=== PATIENT | male | born 1965 | race African-American/Black ===

== ENCOUNTER 2018-03-15 09:46 | Outpatient (RCR) | payer OTHER | END 2018-03-16 | LOC: EDBD → PT 09:46 | PROVIDERS: ATTEND Specialist | DX: M16.12 Unilateral primary osteoarthritis, left hip (principal); M70.72 Other bursitis of hip, left hip; M25.552 Pain in left hip; M25.652 Stiffness of left hip, not elsewhere classified; M62.81 Muscle weakness (generalized) ==

== ENCOUNTER 2018-03-24 09:49 | Outpatient (RCR) | payer OTHER | END 2018-04-16 | LOC: PT 09:49 | PROVIDERS: ATTEND Specialist | DX: M16.12 Unilateral primary osteoarthritis, left hip (principal); M70.72 Other bursitis of hip, left hip ==

== ENCOUNTER → 2019-03-15 | Outpatient (CLI) | payer OTHER ==
--- NOTE | 2019-03-15 16:01 | Diagnostic Imaging Report ---
EXAM: Renal Ultrasound INDICATION: ^CHRONIC KIDNEY DISEASE STAGE III COMPARISON: None TECHNIQUE: Transverse and longitudinal images of the kidneys and bladder were obtained. FINDINGS: Right Kidney: Length: 11.0 cm Appearance: Normal echogenicity. Collecting system: No hydronephrosis Stones: None Cyst/Mass: None Left Kidney: Length: 1.7 cm Appearance: Normal echogenicity. Collecting system: No hydronephrosis Stones: None Cyst/Mass: None Bladder: No mass or calculi. A lateral jet seen. Prevoid volume estimate of 66.9 cc. Postvoid volume estimate of 19.9 cc. Prostate: The prostate measures 3.2 x 2.5 x 3.2 cm with an estimated volume of 13 cc. IMPRESSION: No renal calculi or hydronephrosis. Bladder and prostate measurements as above. Signed by: Opal Green MD on 03/15/2019 3:57 PM
== END ==
LOC: US 14:34
PROVIDERS: ATTEND Internal Medicine Nephrology
DX: N18.3 Chronic kidney disease, stage 3 (moderate) (principal)
CPT/HCPCS: 76770; 76857

== ENCOUNTER 2022-10-19 14:55 | Inpatient (IN) | payer OTHER ==
[~2022-10-19] VITALS: Ht 167.6 cm; Wt 84.6 kg
[2022-10-19] MEDS: FAMOTIDINE 20 MG TAB PO SCH (15:40)
[2022-10-19] MEDS ORDERED: ENALAPRILAT IV INJ 1.25 MG/ML VIAL IV PRN (16:30)
[2022-10-19] MEDS: INSULIN REGULAR, HUMAN 100 UNIT/1 ML SQ SCH ×2 (16:30→22:05)
[2022-10-19] MEDS ORDERED: SODIUM CHLORIDE FLUSH 10 ML SYR INJ PRN (16:30)
[2022-10-19] MEDS ORDERED: ACETAMINOPHEN 325 MG TAB PO PRN (16:30)
[2022-10-19] MEDS ORDERED: DEXTROSE 50% SYRINGE 50 ML IV PRN (16:30)
[2022-10-19] MEDS ORDERED: DIPHENHYDRAMINE HCL INJ 50 MG/ML VIAL IV PRN (16:30)
[2022-10-19] MEDS ORDERED: ASPIRIN 81 MG CHEW TAB PO ONE (16:30)
[2022-10-19] MEDS ORDERED: ASPIRIN 81 MG CHEW TAB ONE (16:51)
[2022-10-19] MEDS ORDERED: FAMOTIDINE 20 MG TAB ONE (16:52)
[2022-10-19] MEDS ORDERED: PIPERACILLIN/TAZOBACTAM 3.375 GM VIAL ONE (16:52)
[2022-10-19] MEDS: LOSARTAN POTASSIUM 25 MG TAB PO SCH (17:00)
[2022-10-19] MEDS: CARVEDILOL 12.5 MG TAB PO SCH (17:00)
[2022-10-19 20:00] VITALS: BP 166/81
[2022-10-19 20:28] VITALS: BP 166/81
[2022-10-19] MEDS ORDERED: NIFEDIPINE ER90 MG PO (20:28)
[2022-10-19] MEDS ORDERED: CALCITRIOL0.25 MCG PO (20:28)
[2022-10-19] MEDS ORDERED: FLOMAX0.4 MG PO (20:28)
[2022-10-19 20:30] VITALS: BP 166/81
[2022-10-19] MEDS ORDERED: ZOLPIDEM TARTRATE 5 MG TAB PO PRN (21:00)
[2022-10-20] VITALS (7 sets, daily range): BP systolic 168–195; BP diastolic 84–99
[2022-10-20] MEDS ORDERED: OMEGA-31000 MG PO (06:48)
[2022-10-20] MEDS ORDERED: ALLOPURINOL100 MG PO (06:48)
[2022-10-20] MEDS ORDERED: COREG6.25 MG PO (06:48)
[2022-10-20] MEDS ORDERED: GLIMEPIRIDE2 MG PO (06:48)
[2022-10-20] MEDS ORDERED: DAILY-VITE TA400 MC1 PO (06:48)
[2022-10-20 06:58] LABS: CREATINE KINASE MB 2.5 ng/mL (0-5.0)
[2022-10-20] MEDS: INSULIN REGULAR, HUMAN 100 UNIT/1 ML SQ SCH ×4 (07:30→21:00)
[2022-10-20] MEDS: FAMOTIDINE 20 MG TAB PO SCH ×2 (09:05→16:41)
[2022-10-20] MEDS: LOSARTAN POTASSIUM 25 MG TAB PO SCH ×2 (09:05→16:40)
[2022-10-20] MEDS: CARVEDILOL 12.5 MG TAB PO SCH ×2 (09:06→16:41)
[2022-10-20] MEDS: CLONIDINE HCL 0.2 MG TAB PO PRN ×2 (14:20→18:39)
[2022-10-20 14:35] LABS: CREATINE KINASE MB 2.5 ng/mL (0-5.0)
[2022-10-20] MEDS ORDERED: ONDANSETRON HCL INJ 2MG/ML 2ML 2 MG/ML VIAL IV PRN (15:00)
[2022-10-20] MEDS ORDERED: METOPROLOL TARTRATE INJ 1 MG/ML VIAL IV PRN (15:00)
[2022-10-20] MEDS ORDERED: ACETAMINOPHEN 325 MG TAB PO PRN (15:00)
[2022-10-20] MEDS ORDERED: POLYETHYLENE GLYCOL 3350 17 GM PACK PO PRN (15:00)
[2022-10-20] MEDS: DOCUSATE SODIUM 100 MG CAP PO SCH (16:39)
[2022-10-20] MEDS ORDERED: CARVEDILOL 12.5 MG TAB PO ONE (17:45)
[2022-10-21] VITALS: BP 155/83
[2022-10-21 04:00] VITALS: BP 177/88
[2022-10-21 05:24] LABS: BASOPHILS % 0.4 % (0.0-1.0); EOSINOPHILS # (AUTO) 0.5 (0.0-0.4); EOSINOPHILS % 4.9 % (0.0-6.0); HEMATOCRIT 26.2 % (38.2-49.6); LYMPHOCYTES # (AUTO) 2.6 (1.0-3.2); LYMPHOCYTES % 27.7 % (18.0-39.1); MEAN CORPUSCULAR HEMOGLOBIN 28.1 pg (28-32); MEAN CORPUSCULAR HGB CONC 30.5 g/dL (31-35); MEAN CORPUSCULAR VOLUME 91.9 fL (81-99); MONOCYTES # (AUTO) 0.8 (0.2-0.8); MONOCYTES % 8.2 % (4.4-11.3); NEUTROPHILS # (AUTO) 5.4 (2.1-6.9); NEUTROPHILS % 58.5 % (38.7-80.0); PLATELET COUNT 181 x10e3/uL (140-360); RED BLOOD COUNT 2.85 x10e6/uL (4.3-5.7); RED CELL DISTRIBUTION WIDTH 17.2 % (11.7-14.4)
[2022-10-21 05:45] LABS: ALBUMIN 1.8 g/dL (3.5-5.0); ALBUMIN/GLOBULIN RATIO 0.5 (0.8-2.0); ANION GAP 18.6 mmol/L (8-16); CALCIUM 7.9 mg/dL (8.4-10.2); CHOL/HDL RATIO 4.3 (3.9-4.7); CREATININE, SERUM 22.48 mg/dL (0.72-1.25); POTASSIUM 4.6 mmol/L (3.5-5.1)
[2022-10-21 05:56] LABS: MAGNESIUM 1.9 MG/DL (1.3-2.1); PHOSPHORUS 8.1 MG/DL (2.3-4.7)
[2022-10-21 06:04] LABS: THYROID STIMULATING HORMONE 3.013 uIU/mL (0.350-4.940)
[2022-10-21] MEDS: INSULIN REGULAR, HUMAN 100 UNIT/1 ML SQ SCH ×3 (07:30→17:16)
[2022-10-21 08:15] VITALS: BP 182/94
[2022-10-21] MEDS ORDERED: ASPIRIN 81 MG ENTERIC COATED PO SCH (09:00)
[2022-10-21 09:04] VITALS: BP 182/94
[2022-10-21] MEDS: CARVEDILOL 12.5 MG TAB PO SCH ×2 (09:11→17:10)
[2022-10-21] MEDS: LOSARTAN POTASSIUM 25 MG TAB PO SCH ×2 (09:12→17:11)
[2022-10-21] MEDS: FAMOTIDINE 20 MG TAB PO SCH ×2 (09:12→17:11)
[2022-10-21] MEDS: DOCUSATE SODIUM 100 MG CAP PO SCH ×2 (09:15→17:11)
[2022-10-21 11:39] VITALS: BP 178/79
[2022-10-21] MEDS: SEVELAMER CARBONATE 800 MG TAB PO SCH ×2 (11:56→16:31)
[2022-10-21] MEDS ORDERED: ONDANSETRON HCL 4 MG ORAL DISINTEGRATING TAB PO PRN (14:15)
[2022-10-21 16:31] VITALS: BP 161/81
[2022-10-21] MEDS ORDERED: ONDANSETRON ODT4 MG PO (18:44)
[2022-10-21] MEDS ORDERED: COZAAR25 MG PO (18:44)
[2022-10-21] MEDS ORDERED: CLONIDINE HCL0.2 MG PO (18:44)
[2022-10-21] MEDS ORDERED: ASPIRIN EC81 MG PO (18:44)
[2022-10-21] MEDS ORDERED: RENVELA800 MG PO (18:44)
[2022-10-21] MEDS ORDERED: ACETAMINOPHEN325 M1 PO (18:44)
[2022-10-21] MEDS ORDERED: COREG12.5 MG PO (18:44)
== END 2022-10-21 19:40 | disposition home or self-care (01) | DRG 291 ==
LOC: FSED 15:11 → ERHOLD 16:22 → MED/SURG2 19:45 → OBSVTOIN 10-21 08:44
PROVIDERS: ADMIT Internal Medicine; ATTEND Internal Medicine
PROC: 5A1D70Z Performance of Urinary Filtration, Intermittent, Less than 6 Hours Per Day (ICD-10-PCS; principal; 2022-10-20)
DX: I13.2 Hypertensive heart and chronic kidney disease with heart failure and with stage 5 chronic kidney disease, or end stage renal disease (principal); I50.33 Acute on chronic diastolic (congestive) heart failure; N18.6 End stage renal disease; Z20.822 Contact with and (suspected) exposure to COVID-19; E11.22 Type 2 diabetes mellitus with diabetic chronic kidney disease; R09.02 Hypoxemia; E11.65 Type 2 diabetes mellitus with hyperglycemia; E11.51 Type 2 diabetes mellitus with diabetic peripheral angiopathy without gangrene; E83.39 Other disorders of phosphorus metabolism; Z99.2 Dependence on renal dialysis; Z60.2 Problems related to living alone; Z87.891 Personal history of nicotine dependence; Z79.4 Long term (current) use of insulin
CPT/HCPCS: 36415; 71046; 80053; 80061; 81003; 82550; 82553; 82948; 83036; 83605; 83735; 83880; 84100; 84443; 84484; 85025; 87040; 87400; 93005; 93306; 94760; 94799; 99284; G0378; J0696; J1817; J2543

== ENCOUNTER 2024-03-27 11:37 | Emergency (ER) | payer MEDICARE, OTHER ==
[~2024-03-27] VITALS: Ht 170.2 cm; Wt 69.4 kg
[~2024-03-27 11:37] MED LIST: ACETAMINOPHEN325 M1 PO; ALLOPURINOL100 MG PO; ASPIRIN EC81 MG PO; CALCITRIOL0.25 MCG PO; CLONIDINE HCL0.2 MG PO; COREG12.5 MG PO; COREG6.25 MG PO; COZAAR25 MG PO; DAILY-VITE TA400 MC1 PO; FLOMAX0.4 MG PO; GLIMEPIRIDE2 MG PO; NIFEDIPINE ER90 MG PO; OMEGA-31000 MG PO; ONDANSETRON ODT4 MG PO; RENVELA800 MG PO
[2024-03-27 11:46] VITALS: PULSE 81; RESP 18; TEMP 99.2; O2SAT 97
[2024-03-27] MEDS ORDERED: CLEOCIN HCL150 MG PO (13:46)
== END 2024-03-27 14:00 | disposition home or self-care (01) ==
LOC: FSED 11:45
DX: R50.9 Fever, unspecified (principal); L03.031 Cellulitis of right toe; I12.0 Hypertensive chronic kidney disease with stage 5 chronic kidney disease or end stage renal disease; E11.22 Type 2 diabetes mellitus with diabetic chronic kidney disease; N18.6 End stage renal disease; Z99.2 Dependence on renal dialysis; E78.5 Hyperlipidemia, unspecified; I50.9 Heart failure, unspecified
CPT/HCPCS: 80048; 85025; 99284

== ENCOUNTER → 2024-10-06 | Outpatient (REF) | payer MEDICARE ==
[~2024-10-06] MED LIST changes: +CLEOCIN HCL150 MG PO; +LIDOCAINE VISC 2% SOLN 15 ML UDC ONE; +LIDOCAINE/PRILOCAINE 2.5-2.5% KIT ONE; +MUPIROCIN 2% OINT 22 GM TUBE ONE
== END ==
LOC: WCC 15:31
PROVIDERS: ATTEND Internal Medicine Infectious Disease
DX: E11.621 Type 2 diabetes mellitus with foot ulcer (principal); L97.524 Non-pressure chronic ulcer of other part of left foot with necrosis of bone
CPT/HCPCS: 36415; 82948

== ENCOUNTER → 2024-10-11 | Outpatient (REF) | payer MEDICARE ==
[~2024-10-11] MED LIST changes: -LIDOCAINE VISC 2% SOLN 15 ML UDC ONE; -LIDOCAINE/PRILOCAINE 2.5-2.5% KIT ONE; -MUPIROCIN 2% OINT 22 GM TUBE ONE
== END ==
LOC: MRI 08:29
PROVIDERS: ATTEND Internal Medicine Infectious Disease
DX: Z01.818 Encounter for other preprocedural examination (principal); E11.621 Type 2 diabetes mellitus with foot ulcer; L97.524 Non-pressure chronic ulcer of other part of left foot with necrosis of bone; I50.32 Chronic diastolic (congestive) heart failure
CPT/HCPCS: 71046; 93005

== ENCOUNTER → 2024-10-12 | Outpatient (REF) | payer MEDICARE | LOC: RAD 10:06 | PROVIDERS: ATTEND Internal Medicine Infectious Disease | DX: E11.621 Type 2 diabetes mellitus with foot ulcer (principal); L97.524 Non-pressure chronic ulcer of other part of left foot with necrosis of bone | CPT/HCPCS: 93306 ==

== ENCOUNTER 2024-11-10 11:00 | Outpatient (RCR) | payer MEDICARE ==
[2024-11-03 15:22] LABS: ANION GAP 23.2 mmol/L (8-16); CALCIUM 9.1 mg/dL (8.4-10.2); CREATININE, SERUM 8.03 mg/dL (0.72-1.25)
[2024-11-03 15:31] LABS: POTASSIUM 5.2 mmol/L (3.5-5.1)
== END 2024-11-14 ==
LOC: WCC 11:00
PROVIDERS: ATTEND Internal Medicine Infectious Disease
DX: E11.621 Type 2 diabetes mellitus with foot ulcer (principal); L97.524 Non-pressure chronic ulcer of other part of left foot with necrosis of bone
CPT/HCPCS: 36415; 80048

== ENCOUNTER 2024-11-29 11:47 | Outpatient (RCR) | payer MEDICARE | END 2024-12-14 | LOC: WCC 11:47 | PROVIDERS: ATTEND Nurse Practitioner Family | DX: E11.621 Type 2 diabetes mellitus with foot ulcer (principal); L97.524 Non-pressure chronic ulcer of other part of left foot with necrosis of bone | CPT/HCPCS: 36415; 82948 ==